=== PATIENT | male | born 1970 | race African-American/Black ===

== ENCOUNTER 2020-02-19 09:09 | Inpatient (IN) | payer MEDICAID ==
[2020-02-19] VITALS (12 sets, daily range): BP systolic 95–142; BP diastolic 31–76
[~2020-02-19] VITALS: Ht 182.9 cm; Wt 83.9 kg
[2020-02-19] MEDS ORDERED: SODIUM CHLORIDE 0.9% 1000ML BAG (SEPSIS BOLUS) IV ONE (09:45)
[2020-02-19] MEDS ORDERED: PANTOPRAZOLE SODIUM 40 MG/VIAL IV ONE (09:45)
[2020-02-19 09:55] LABS: HEMATOCRIT. 26.3 % (42.0-52.0); HEMOGLOBIN. 9.3 g/dL (14.0-18.0); MEAN CORPUSCULAR HEMOGLOBIN 29.4 pg (28.0-32.0); MEAN CORPUSCULAR VOLUME 83.2 fL (80.0-94.0); MEAN PLATELET VOLUME 10.2 fl (7.4-10.4); PLATELET 170 x1000/uL (130-400); RED BLOOD CELL COUNT 3.16 mill/uL (4.7-6.1); RED CELL DISTRIBUTION WIDTH 14.7 % (11.6-14.6)
[2020-02-19 09:58] LABS: CLARITY URINE TURBID (CLEAR); COLOR URINE YELLOW (YELLOW); KETONES URINE NEGATIVE (NEGATIVE); LEUKOCYTE ESTERASE URINE 3+ (NEGATIVE); NITRITE URINE NEGATIVE (NEGATIVE); OCCULT BLOOD URINE 3+ (NEGATIVE); PH URINE 8.5 (4.5-8.0); PROTEIN URINE 3+ (NEGATIVE); SPECIFIC GRAVITY URINE 1.012 (1.005-1.030)
[2020-02-19 10:00] LABS: INR 1.2; PROTHROMBIN TIME 12.2 sec (9.6-11.0)
[2020-02-19 10:04] LABS: CHLORIDE 96 mEq/L (98-107)
[2020-02-19] MEDS ORDERED: PIPERACILLIN/TAZ 3.375G PREMIX 50 ML IV ONE (10:15)
[2020-02-19 10:54] LABS: PLATELET ESTIMATE NORMAL
[2020-02-19] MEDS ORDERED: NOREPINEPHRINE 4MG/250ML PMX 250 ML IV ONE ×3 (11:00→18:00)
[2020-02-19] MEDS ORDERED: NOREPINEPHRINE 4 MG in DEXT 5% WATER 246 ML IV ONE (11:00)
[2020-02-19] MEDS ORDERED: ONDANSETRON HCL 4MG/2ML INJ IV PRN (13:00)
[2020-02-19] MEDS ORDERED: PIPERACILLIN/TAZOBACTAM 3.375 G in DEXT 5% WATER 100 ML IV SCH (13:00)
[2020-02-19] MEDS ORDERED: ACETAMINOPHEN 325MG TABLET PO PRN (13:00)
[2020-02-19] MEDS: SODIUM CHLORIDE 0.9% 1,000 ML IV SCH (13:16)
[2020-02-19] MEDS ORDERED: MIDODRINE HCL 5MG TABLET PO SCH (13:45)
[2020-02-19 15:34] LABS: SODIUM URINE RANDOM 65 mEq/L
[2020-02-19 15:42] LABS: CREATININE URINE RANDOM < 3.0 mg/dL
[2020-02-19] MEDS ORDERED: PIPERACILLIN/TAZOBACTAM 2.25 G in DEXTROSE 5% WATER 50 ML IV SCH (16:00)
[2020-02-19] MEDS: NOREPINEPHRINE 4 MG in DEXTROSE 5% WATER 250 ML IV PRN (18:12)
[2020-02-19] MEDS: PIPERACILLIN/TAZOBACTAM 2.25 G in DEXTROSE 5% WATER 50 ML IV SCH (21:48)
[2020-02-20] VITALS (98 sets, daily range): BP systolic 81–161; BP diastolic 41–119
[2020-02-20] MEDS: SODIUM CHLORIDE 0.9% 1,000 ML IV SCH ×2 (00:48→13:21)
[2020-02-20] MEDS: NOREPINEPHRINE 4 MG in DEXTROSE 5% WATER 250 ML IV PRN ×2 (02:09→12:32)
[2020-02-20] MEDS: PIPERACILLIN/TAZOBACTAM 2.25 G in DEXTROSE 5% WATER 50 ML IV SCH ×3 (04:00→16:47)
[2020-02-20 05:43] LABS: HEMATOCRIT. 26.8 % (42.0-52.0); HEMOGLOBIN. 9.1 g/dL (14.0-18.0); MEAN CORPUSCULAR HEMOGLOBIN 28.6 pg (28.0-32.0); MEAN CORPUSCULAR VOLUME 84.2 fL (80.0-94.0); PLATELET 213 x1000/uL (130-400); RED BLOOD CELL COUNT 3.18 mill/uL (4.7-6.1); RED CELL DISTRIBUTION WIDTH 14.9 % (11.6-14.6)
[2020-02-20 05:52] LABS: CHLORIDE 103 mEq/L (98-107)
[2020-02-20 06:07] LABS: PHOSPHORUS 2.6 mg/dL (2.5-4.9)
[2020-02-20] MEDS: TAMSULOSIN HCL 0.4MG SR CAPSULE PO SCH (09:43)
[2020-02-20] MEDS: MIDODRINE HCL 5MG TABLET PO SCH ×3 (09:44→16:47)
[2020-02-20 13:44] LABS: PLATELET ESTIMATE NORMAL
[2020-02-20] MEDS ORDERED: POTASSIUM CHLORIDE 20MEQ TABLET SR PO NR (16:15)
[2020-02-20] MEDS: MEROPENEM 1,000 MG in SODIUM CHLORIDE 0.9% 100 ML IV SCH (20:01)
[2020-02-21] VITALS (91 sets, daily range): BP systolic 43–135; BP diastolic 15–80
[2020-02-21 05:09] LABS: HEMOGLOBIN. 7.8 g/dL (14.0-18.0); MEAN CORPUSCULAR HEMOGLOBIN 28.4 pg (28.0-32.0); MEAN CORPUSCULAR VOLUME 83.9 fL (80.0-94.0); MEAN PLATELET VOLUME 8.9 fl (7.4-10.4); PLATELET 202 x1000/uL (130-400); RED BLOOD CELL COUNT 2.73 mill/uL (4.7-6.1); RED CELL DISTRIBUTION WIDTH 14.8 % (11.6-14.6)
[2020-02-21] MEDS: SODIUM CHLORIDE 0.9% 1,000 ML IV SCH ×4 (05:25→21:16)
[2020-02-21 05:43] LABS: PHOSPHORUS 2.9 mg/dL (2.5-4.9)
[2020-02-21] MEDS: MEROPENEM 1,000 MG in SODIUM CHLORIDE 0.9% 100 ML IV SCH ×2 (07:14→19:46)
[2020-02-21] MEDS: MIDODRINE HCL 5MG TABLET PO SCH ×3 (09:17→16:49)
[2020-02-21] MEDS: TAMSULOSIN HCL 0.4MG SR CAPSULE PO SCH (09:18)
[2020-02-21] MEDS: NOREPINEPHRINE 4 MG in DEXTROSE 5% WATER 250 ML IV PRN (09:19)
[2020-02-21] MEDS: DOCUSATE SODIUM 250MG CAPSULE PO SCH (12:37)
[2020-02-21 14:14] LABS: PLATELET ESTIMATE NORMAL
[2020-02-22] VITALS (76 sets, daily range): BP systolic 71–131; BP diastolic 23–78
[2020-02-22 06:35] LABS: HEMATOCRIT. 22.6 % (42.0-52.0); HEMOGLOBIN. 7.8 g/dL (14.0-18.0); MEAN CORPUSCULAR HEMOGLOBIN 29.4 pg (28.0-32.0); MEAN CORPUSCULAR VOLUME 85.1 fL (80.0-94.0); PLATELET 241 x1000/uL (130-400); RED BLOOD CELL COUNT 2.66 mill/uL (4.7-6.1); RED CELL DISTRIBUTION WIDTH 14.9 % (11.6-14.6)
[2020-02-22 07:59] LABS: PHOSPHORUS 2.7 mg/dL (2.5-4.9)
[2020-02-22] MEDS: MEROPENEM 1,000 MG in SODIUM CHLORIDE 0.9% 100 ML IV SCH (09:06)
[2020-02-22] MEDS: DOCUSATE SODIUM 250MG CAPSULE PO SCH (09:07)
[2020-02-22] MEDS: TAMSULOSIN HCL 0.4MG SR CAPSULE PO SCH (09:07)
[2020-02-22] MEDS: MIDODRINE HCL 5MG TABLET PO SCH ×3 (09:08→17:21)
[2020-02-22] MEDS: SODIUM CHLORIDE 0.9% 1,000 ML IV SCH (11:03)
[2020-02-22 15:06] LABS: PLATELET ESTIMATE NORMAL
[2020-02-22] MEDS ORDERED: MAGNESIUM 2 G PREMIX 50 ML IV NR (15:30)
[2020-02-22] MEDS: FLUDROCORTISONE ACETATE 0.1MG TABLET PO SCH (17:21)
[2020-02-22] MEDS: NOREPINEPHRINE 4 MG in DEXTROSE 5% WATER 250 ML IV PRN (18:43)
[2020-02-22] MEDS ORDERED: CEFTRIAXONE 2 G PREMIX 50 ML IV SCH (19:45)
[2020-02-22] MEDS: CEFTRIAXONE 2 G in DEXTROSE 5% WATER 50 ML IV SCH (20:51)
[2020-02-22] MEDS ORDERED: IPRATROPIUM/ALBUTEROL 0.5-3(2.5)MG/3ML NEB HHN PRN (22:30)
[2020-02-22 22:53] LABS: BG BASE EXCESS -6.6 mmol/L (-2.0-2.0); BG CARBOXYHEMOGLOBIN 1.7 % (0.5-1.5); BG DEOXYHEMOGLOBIN 2.7 % (0.0-5.0); BG FRACTION INSPIRED OXYGEN 21; BG HCO3 ACT 18.4 mmol/L (22.0-26.0); BG METHEMOGLOBIN 0.3 % (0.0-1.5); BG OXYGEN SATURATION 97.2 % (92.0-98.5); BG OXYHEMOGLOBIN 95.3 % (94.0-97.0); BG PCO2 34.3 mmHg (35.0-45.0); BG PH 7.347 (7.350-7.450); BG PO2 94.9 mmHg (75.0-100.0); BG SAMPLE SITE RIGHT RADIAL; BG TOTAL HEMOGLOBIN 8.1 g/dL (12.0-18.0); BG VENT MODE ROOM AIR
[2020-02-23] VITALS (57 sets, daily range): BP systolic 83–152; BP diastolic 47–102
[2020-02-23] MEDS: SODIUM CHLORIDE 0.9% 1,000 ML IV SCH ×2 (02:08→23:35)
[2020-02-23 06:42] LABS: CHLORIDE 113 mEq/L (98-107)
[2020-02-23 06:47] LABS: HEMATOCRIT. 22.9 % (42.0-52.0); HEMOGLOBIN. 7.7 g/dL (14.0-18.0); MEAN CORPUSCULAR HEMOGLOBIN 28.4 pg (28.0-32.0); MEAN CORPUSCULAR VOLUME 84.2 fL (80.0-94.0); MEAN PLATELET VOLUME 8.7 fl (7.4-10.4); PLATELET 320 x1000/uL (130-400); RED BLOOD CELL COUNT 2.71 mill/uL (4.7-6.1); RED CELL DISTRIBUTION WIDTH 14.4 % (11.6-14.6)
[2020-02-23] MEDS: MIDODRINE HCL 5MG TABLET PO SCH ×3 (09:39→17:00)
[2020-02-23] MEDS: ZINC SULFATE 220 MG ( 50 ) CAPSULE PO SCH (09:39)
[2020-02-23] MEDS: ASCORBIC ACID 500 MG TABLET PO SCH (09:40)
[2020-02-23] MEDS: TAMSULOSIN HCL 0.4MG SR CAPSULE PO SCH (09:41)
[2020-02-23] MEDS: FLUDROCORTISONE ACETATE 0.1MG TABLET PO SCH (09:41)
[2020-02-23] MEDS: MAGNESIUM HYDROXIDE 400MG/5ML 30ML UDC PO SCH (09:42)
[2020-02-23] MEDS: DOCUSATE SODIUM 250MG CAPSULE PO SCH (09:42)
[2020-02-23] MEDS ORDERED: SODIUM CHLORIDE 0.45% 500 ML IV ONE (12:00)
[2020-02-23] MEDS ORDERED: POTASSIUM PHOS,M-BASIC-D-BASIC 20 MMOL in DEXT 5% WATER 243.3333 ML IV NR (14:30)
[2020-02-23] MEDS: CEFTRIAXONE 2 G in DEXTROSE 5% WATER 50 ML IV SCH (21:01)
[2020-02-23] MEDS ORDERED: BACL20TA PO (21:49)
[2020-02-23] MEDS ORDERED: GABA-533 PO (21:49)
[2020-02-23 22:24] LABS: PLATELET ESTIMATE NORMAL
[2020-02-24] VITALS (64 sets, daily range): BP systolic 78–159; BP diastolic 35–123
[2020-02-24] MEDS: NOREPINEPHRINE 4 MG in DEXTROSE 5% WATER 250 ML IV PRN (03:18)
[2020-02-24 06:13] LABS: HEMATOCRIT. 21.4 % (42.0-52.0); HEMOGLOBIN. 7.2 g/dL (14.0-18.0); MEAN CORPUSCULAR HEMOGLOBIN 28.4 pg (28.0-32.0); MEAN CORPUSCULAR VOLUME 83.9 fL (80.0-94.0); MEAN PLATELET VOLUME 8.3 fl (7.4-10.4); PLATELET 337 x1000/uL (130-400); RED BLOOD CELL COUNT 2.55 mill/uL (4.7-6.1); RED CELL DISTRIBUTION WIDTH 14.9 % (11.6-14.6)
[2020-02-24 06:23] LABS: CHLORIDE 116 mEq/L (98-107)
[2020-02-24 06:31] LABS: PHOSPHORUS 2.8 mg/dL (2.5-4.9)
[2020-02-24] MEDS: MAGNESIUM HYDROXIDE 400MG/5ML 30ML UDC PO SCH (08:56)
[2020-02-24] MEDS: TAMSULOSIN HCL 0.4MG SR CAPSULE PO SCH (08:56)
[2020-02-24] MEDS: DOCUSATE SODIUM 250MG CAPSULE PO SCH (08:56)
[2020-02-24] MEDS: FLUDROCORTISONE ACETATE 0.1MG TABLET PO SCH (08:56)
[2020-02-24] MEDS: ZINC SULFATE 220 MG ( 50 ) CAPSULE PO SCH (08:56)
[2020-02-24] MEDS: ASCORBIC ACID 500 MG TABLET PO SCH (08:56)
[2020-02-24] MEDS: MIDODRINE HCL 5MG TABLET PO SCH ×3 (08:57→18:07)
[2020-02-24] MEDS: SODIUM CHLORIDE 0.9% 1,000 ML IV SCH ×2 (09:39→23:45)
[2020-02-24 10:52] LABS: NUCLEATED RED BLOOD CELLS 2 /100 WBC; PLATELET ESTIMATE NORMAL
[2020-02-24 18:19] LABS: T4 FREE 1.19 ng/dL (0.76-1.46)
[2020-02-24 18:34] LABS: FOLIC ACID (FOLATE) SERUM 14.1 ng/mL (>5.38)
[2020-02-24] MEDS: CEFTRIAXONE 2 G in DEXTROSE 5% WATER 50 ML IV SCH (21:28)
[2020-02-25] VITALS (10 sets, daily range): BP systolic 103–158; BP diastolic 19–98
[2020-02-25 01:56] LABS: *AMPHETAMINES SCREEN URINE NEGATIVE (NEGATIVE); *BARBITURATES SCREEN URINE NEGATIVE (NEGATIVE); *BENZODIAZEPINES SCREEN URINE NEGATIVE (NEGATIVE)
[2020-02-25 01:57] LABS: *COCAINE SCREEN URINE NEGATIVE (NEGATIVE); CANNABINOID URINE SCREEN NEGATIVE (NEGATIVE); METHADONE URINE SCREEN NEGATIVE (NEGATIVE); OPIATES URINE SCREEN NEGATIVE (NEGATIVE); PHENCYCLIDINE URINE SCREEN NEGATIVE (NEGATIVE)
[2020-02-25 06:31] LABS: CHLORIDE 117 mEq/L (98-107)
[2020-02-25 06:32] LABS: HEMATOCRIT. 22.3 % (42.0-52.0); HEMOGLOBIN. 7.6 g/dL (14.0-18.0); MEAN CORPUSCULAR VOLUME 85.3 fL (80.0-94.0); MEAN PLATELET VOLUME 8.5 fl (7.4-10.4); PLATELET 401 x1000/uL (130-400); RED BLOOD CELL COUNT 2.62 mill/uL (4.7-6.1)
[2020-02-25] MEDS: MAGNESIUM HYDROXIDE 400MG/5ML 30ML UDC PO SCH (09:00)
[2020-02-25] MEDS: MIDODRINE HCL 5MG TABLET PO SCH ×3 (09:45→16:33)
[2020-02-25] MEDS: DOCUSATE SODIUM 250MG CAPSULE PO SCH (09:45)
[2020-02-25] MEDS: ZINC SULFATE 220 MG ( 50 ) CAPSULE PO SCH (09:46)
[2020-02-25] MEDS: ASCORBIC ACID 500 MG TABLET PO SCH (09:46)
[2020-02-25] MEDS: TAMSULOSIN HCL 0.4MG SR CAPSULE PO SCH (09:46)
[2020-02-25] MEDS: SODIUM CHLORIDE 0.45% 1,000 ML IV SCH (13:25)
[2020-02-25 13:57] LABS: NUCLEATED RED BLOOD CELLS 1 /100 WBC; PLATELET ESTIMATE INCREASED
[2020-02-25] MEDS: CEFTRIAXONE 2 G in DEXTROSE 5% WATER 50 ML IV SCH (21:53)
[2020-02-26] VITALS (12 sets, daily range): BP systolic 95–153; BP diastolic 39–104
[2020-02-26 07:08] LABS: HEMATOCRIT. 22.6 % (42.0-52.0); HEMOGLOBIN. 7.6 g/dL (14.0-18.0); MEAN CORPUSCULAR HEMOGLOBIN 28.9 pg (28.0-32.0); MEAN CORPUSCULAR VOLUME 85.4 fL (80.0-94.0); MEAN PLATELET VOLUME 8.3 fl (7.4-10.4); PLATELET 410 x1000/uL (130-400); RED BLOOD CELL COUNT 2.65 mill/uL (4.7-6.1); RED CELL DISTRIBUTION WIDTH 15.1 % (11.6-14.6)
[2020-02-26 07:19] LABS: CHLORIDE 118 mEq/L (98-107)
[2020-02-26] MEDS: MIDODRINE HCL 5MG TABLET PO SCH ×4 (08:32→18:13)
[2020-02-26] MEDS: DOCUSATE SODIUM 250MG CAPSULE PO SCH (08:32)
[2020-02-26] MEDS: ASCORBIC ACID 500 MG TABLET PO SCH (08:32)
[2020-02-26] MEDS: ZINC SULFATE 220 MG ( 50 ) CAPSULE PO SCH (08:33)
[2020-02-26] MEDS: TAMSULOSIN HCL 0.4MG SR CAPSULE PO SCH (08:33)
[2020-02-26] MEDS: MAGNESIUM HYDROXIDE 400MG/5ML 30ML UDC PO SCH (08:33)
[2020-02-26] MEDS: SODIUM CHLORIDE 0.45% 1,000 ML IV SCH (13:52)
[2020-02-26 13:57] LABS: NUCLEATED RED BLOOD CELLS 1 /100 WBC; PLATELET ESTIMATE INCREASED
[2020-02-26] MEDS ORDERED: MAGNESIUM 2 G PREMIX 50 ML IV SCH (14:00)
[2020-02-26] MEDS: CEFTRIAXONE 2 G in DEXTROSE 5% WATER 50 ML IV SCH (21:27)
[2020-02-27] VITALS (12 sets, daily range): BP systolic 99–167; BP diastolic 41–89
[2020-02-27] MEDS: MIDODRINE HCL 5MG TABLET PO SCH ×3 (09:00→17:00)
[2020-02-27] MEDS: ZINC SULFATE 220 MG ( 50 ) CAPSULE PO SCH (09:29)
[2020-02-27] MEDS: DOCUSATE SODIUM 250MG CAPSULE PO SCH (09:29)
[2020-02-27] MEDS: ASCORBIC ACID 500 MG TABLET PO SCH (09:29)
[2020-02-27] MEDS: TAMSULOSIN HCL 0.4MG SR CAPSULE PO SCH (09:30)
[2020-02-27] MEDS: MAGNESIUM HYDROXIDE 400MG/5ML 30ML UDC PO SCH (09:30)
[2020-02-27] MEDS: DEXTROSE 5% WATER 1,000 ML IV SCH (13:08)
[2020-02-27 17:18] LABS: CLARITY URINE TURBID (CLEAR); COLOR URINE YELLOW (YELLOW); KETONES URINE 1+ (NEGATIVE); LEUKOCYTE ESTERASE URINE 3+ (NEGATIVE); NITRITE URINE NEGATIVE (NEGATIVE); OCCULT BLOOD URINE 2+ (NEGATIVE); PROTEIN URINE 2+ (NEGATIVE); SPECIFIC GRAVITY URINE 1.013 (1.005-1.030); UROBILINOGEN URINE 0.2 E.U./dL (0.2-1.0)
[2020-02-27] MEDS: CEFTRIAXONE 2 G in DEXTROSE 5% WATER 50 ML IV SCH (20:01)
[2020-02-27] MEDS: POLYETHYLENE GLYCOL 3350 (17GM) 1 DOSE PACK PO SCH (20:01)
[2020-02-28] VITALS (15 sets, daily range): BP systolic 92–124; BP diastolic 54–89
[2020-02-28 07:11] LABS: HEMATOCRIT. 21.9 % (42.0-52.0); HEMOGLOBIN. 7.4 g/dL (14.0-18.0); MEAN CORPUSCULAR HEMOGLOBIN 29.4 pg (28.0-32.0); MEAN PLATELET VOLUME 8.6 fl (7.4-10.4); PLATELET 369 x1000/uL (130-400); RED BLOOD CELL COUNT 2.51 mill/uL (4.7-6.1); RED CELL DISTRIBUTION WIDTH 15.9 % (11.6-14.6)
[2020-02-28 08:24] LABS: CHLORIDE 116 mEq/L (98-107)
[2020-02-28 08:34] LABS: PHOSPHORUS 2.9 mg/dL (2.5-4.9)
[2020-02-28] MEDS: MAGNESIUM HYDROXIDE 400MG/5ML 30ML UDC PO SCH (10:05)
[2020-02-28] MEDS: ASCORBIC ACID 500 MG TABLET PO SCH (10:05)
[2020-02-28] MEDS: MIDODRINE HCL 5MG TABLET PO SCH ×3 (10:06→20:06)
[2020-02-28] MEDS: DOCUSATE SODIUM 250MG CAPSULE PO SCH ×2 (10:06→10:07)
[2020-02-28] MEDS: ZINC SULFATE 220 MG ( 50 ) CAPSULE PO SCH (10:06)
[2020-02-28] MEDS: TAMSULOSIN HCL 0.4MG SR CAPSULE PO SCH (10:08)
[2020-02-28 13:00] LABS: PLATELET ESTIMATE NORMAL
[2020-02-28] MEDS: DEXTROSE 5% WATER 1,000 ML IV SCH (14:10)
[2020-02-28] MEDS ORDERED: POTASSIUM CHLORIDE 20MEQ/PACKET PO NR (17:45)
[2020-02-28] MEDS ORDERED: POLYETHYLENE GLYCOL 3350 (17GM) 1 DOSE PACK PO NR (17:45)
[2020-02-28] MEDS: POLYETHYLENE GLYCOL 3350 (17GM) 1 DOSE PACK PO SCH (22:13)
[2020-02-28] MEDS: CEFTRIAXONE 2 G in DEXTROSE 5% WATER 50 ML IV SCH (22:13)
[2020-02-29] VITALS: BP 127/54
[2020-02-29 04:00] VITALS: BP 110/67
[2020-02-29 06:45] LABS: HEMATOCRIT. 24.6 % (42.0-52.0); HEMOGLOBIN. 8.3 g/dL (14.0-18.0); MEAN CORPUSCULAR HEMOGLOBIN 29.3 pg (28.0-32.0); MEAN CORPUSCULAR VOLUME 87.5 fL (80.0-94.0); MEAN PLATELET VOLUME 8.6 fl (7.4-10.4); PLATELET 386 x1000/uL (130-400); RED BLOOD CELL COUNT 2.82 mill/uL (4.7-6.1); RED CELL DISTRIBUTION WIDTH 15.8 % (11.6-14.6)
[2020-02-29 07:03] LABS: CHLORIDE 118 mEq/L (98-107)
[2020-02-29 07:08] LABS: PHOSPHORUS 2.4 mg/dL (2.5-4.9)
[2020-02-29 08:00] VITALS: BP 92/53
[2020-02-29] MEDS: MAGNESIUM HYDROXIDE 400MG/5ML 30ML UDC PO SCH (09:00)
[2020-02-29] MEDS: ZINC SULFATE 220 MG ( 50 ) CAPSULE PO SCH (09:16)
[2020-02-29] MEDS: MIDODRINE HCL 5MG TABLET PO SCH ×3 (09:16→16:16)
[2020-02-29] MEDS: ASCORBIC ACID 500 MG TABLET PO SCH (09:17)
[2020-02-29] MEDS: TAMSULOSIN HCL 0.4MG SR CAPSULE PO SCH (09:17)
[2020-02-29 12:00] VITALS: BP 102/68
[2020-02-29] MEDS: DEXTROSE 5% WATER 1,000 ML IV SCH (12:25)
[2020-02-29 16:00] VITALS: BP 122/75
[2020-02-29 16:43] LABS: PLATELET ESTIMATE NORMAL
[2020-02-29 20:00] VITALS: BP 109/72
[2020-02-29] MEDS ORDERED: CEFTRIAXONE 2 G in DEXTROSE 5% WATER 50 ML IV SCH (20:00)
[2020-02-29] MEDS: POLYETHYLENE GLYCOL 3350 (17GM) 1 DOSE PACK PO SCH (20:05)
[2020-03-01] VITALS: BP 111/75
[2020-03-01 04:00] VITALS: BP 94/57
[2020-03-01 06:16] LABS: CHLORIDE 113 mEq/L (98-107)
[2020-03-01 06:23] LABS: HEMATOCRIT. 23.8 % (42.0-52.0); HEMOGLOBIN. 7.9 g/dL (14.0-18.0); MEAN CORPUSCULAR HEMOGLOBIN 29.2 pg (28.0-32.0); MEAN CORPUSCULAR VOLUME 87.4 fL (80.0-94.0); MEAN PLATELET VOLUME 8.7 fl (7.4-10.4); PLATELET 331 x1000/uL (130-400); RED BLOOD CELL COUNT 2.72 mill/uL (4.7-6.1); RED CELL DISTRIBUTION WIDTH 16.1 % (11.6-14.6)
[2020-03-01] MEDS: MAGNESIUM HYDROXIDE 400MG/5ML 30ML UDC PO SCH (08:20)
[2020-03-01] MEDS: ASCORBIC ACID 500 MG TABLET PO SCH (08:21)
[2020-03-01] MEDS: MIDODRINE HCL 5MG TABLET PO SCH ×2 (08:21→13:40)
[2020-03-01] MEDS: ZINC SULFATE 220 MG ( 50 ) CAPSULE PO SCH (08:22)
[2020-03-01] MEDS ORDERED: CIPR-263 MT (08:38)
[2020-03-01] MEDS ORDERED: SULF1TAB MT (08:38)
[2020-03-01 08:40] VITALS: BP 92/47
[2020-03-01] MEDS: DOCUSATE SODIUM 250MG CAPSULE PO SCH (09:00)
[2020-03-01] MEDS: TAMSULOSIN HCL 0.4MG SR CAPSULE PO SCH (10:25)
[2020-03-01 11:46] VITALS: BP 117/59
[2020-03-01 13:31] LABS: PLATELET ESTIMATE NORMAL
[2020-03-01] MEDS: DEXTROSE 5% WATER 1,000 ML IV SCH (13:41)
[2020-03-01 14:28] VITALS: BP 115/95
[2020-03-01 16:22] VITALS: BP 111/62
[2020-03-18] MEDS ORDERED: FLOR PO (12:09)
[2020-03-18] MEDS ORDERED: MIDO5TAB4 PO (12:09)
[2020-03-18] MEDS ORDERED: TAMS-11 PO (12:09)
== END 2020-03-01 17:05 | disposition home health service (06) | DRG 720 ==
LOC: ER 09:26 → EDBEDREQTM 10:43 → EDBEDREQ 10:43 → EDBEDREQTM 11:03 → EDBEDREQSVC 11:03 → CANRESERV 11:05 → ENRESERV 11:05 → 5EST 21:23
PROVIDERS: ADMIT Internal Medicine; ATTEND Internal Medicine
PROC: 02HV33Z Insertion of Infusion Device into Superior Vena Cava, Percutaneous Approach (ICD-10-PCS; principal; 2020-02-19)
PROC: B548ZZA Ultrasonography of Superior Vena Cava, Guidance (ICD-10-PCS; 2020-02-19)
DX: A41.51 Sepsis due to Escherichia coli [E. coli] (principal); R65.21 Severe sepsis with septic shock; E43 Unspecified severe protein-calorie malnutrition; E87.8 Other disorders of electrolyte and fluid balance, not elsewhere classified; G82.20 Paraplegia, unspecified; I31.3 Pericardial effusion (noninflammatory); D64.9 Anemia, unspecified; E87.1 Hypo-osmolality and hyponatremia; Z95.828 Presence of other vascular implants and grafts; G92 Toxic encephalopathy; I10 Essential (primary) hypertension; K59.00 Constipation, unspecified; L85.3 Xerosis cutis; B96.20 Unspecified Escherichia coli [E. coli] as the cause of diseases classified elsewhere; N40.1 Benign prostatic hyperplasia with lower urinary tract symptoms; N39.0 Urinary tract infection, site not specified; N20.0 Calculus of kidney; I73.9 Peripheral vascular disease, unspecified; R26.9 Unspecified abnormalities of gait and mobility; R74.0 Nonspecific elevation of levels of transaminase and lactic acid dehydrogenase [LDH]; E83.42 Hypomagnesemia; K63.9 Disease of intestine, unspecified; N17.0 Acute kidney failure with tubular necrosis; L89.899 Pressure ulcer of other site, unspecified stage; N13.8 Other obstructive and reflux uropathy; S81.812A Laceration without foreign body, left lower leg, initial encounter; X58.XXXA Exposure to other specified factors, initial encounter; Y93.89 Activity, other specified; Y92.89 Other specified places as the place of occurrence of the external cause; Y99.8 Other external cause status; Z03.818 Encounter for observation for suspected exposure to other biological agents ruled out; Z68.25 Body mass index [BMI] 25.0-25.9, adult
CPT/HCPCS: 36415; 36573; 36600; 70551; 71045; 74018; 74176; 76937; 80048; 80053; 80305; 80320; 81003; 82040; 82043; 82140; 82375; 82533; 82570; 82607; 82746; 82805; 82962; 83036; 83605; 83735; 83935; 84100; 84134; 84145; 84300; 84439; 84443; 84481; 84484; 85025; 86850; 86900; 87077; 87186; 93005; 93923; 93970; 96365; 99291; C1725; C9113; J0696; J2185; J2405; J2543; J3475; J3490; J7030; J7050; J7060; J7070; G0480; U0003-CS

== ENCOUNTER 2020-03-11 05:54 | Inpatient (IN) | payer MEDICAID ==
[~2020-03-11] VITALS: Ht 177.8 cm; Wt 77.1 kg
[~2020-03-11 05:54] MED LIST: BACL20TA PO; CIPR-263 MT; GABA-533 PO; SULF1TAB MT
[2020-03-11] MEDS ORDERED: PIPERACILLIN/TAZ 3.375G PREMIX 50 ML IV ONE (06:15)
[2020-03-11] MEDS ORDERED: SODIUM CHLORIDE 0.9% 1000ML BAG (SEPSIS BOLUS) IV ONE (06:15)
[2020-03-11] MEDS ORDERED: VANCOMYCIN 1 G PREMIX 200 ML IV ONE (06:15)
[2020-03-11 06:36] LABS: HEMATOCRIT. 24.8 % (42.0-52.0); HEMOGLOBIN. 8.1 g/dL (14.0-18.0); MEAN CORPUSCULAR HEMOGLOBIN 28.4 pg (28.0-32.0); MEAN CORPUSCULAR VOLUME 86.9 fL (80.0-94.0); MEAN PLATELET VOLUME 8.3 fl (7.4-10.4); PLATELET 139 x1000/uL (130-400); RED BLOOD CELL COUNT 2.86 mill/uL (4.7-6.1); RED CELL DISTRIBUTION WIDTH 15.6 % (11.6-14.6)
[2020-03-11 06:44] LABS: CHLORIDE 108 mEq/L (98-107)
[2020-03-11 06:48] LABS: INR 1.1; PROTHROMBIN TIME 11.9 sec (9.6-11.0)
[2020-03-11] MEDS ORDERED: NOREPINEPHRINE 4MG/250ML PMX 250 ML IV ONE (07:15)
[2020-03-11 07:50] LABS: CLARITY URINE TURBID (CLEAR); COLOR URINE YELLOW (YELLOW); KETONES URINE NEGATIVE (NEGATIVE); LEUKOCYTE ESTERASE URINE 3+ (NEGATIVE); NITRITE URINE POSITIVE (NEGATIVE); OCCULT BLOOD URINE 2+ (NEGATIVE); PROTEIN URINE 1+ (NEGATIVE); SPECIFIC GRAVITY URINE 1.009 (1.005-1.030)
[2020-03-11 08:01] LABS: PLATELET ESTIMATE NORMAL
[2020-03-11] MEDS ORDERED: IOHEXOL-350 100 ML BOTTLE ONE (09:37)
[2020-03-11] MEDS ORDERED: LIDOCAINE HCL 1% 20ML VIAL (Pyxis) INJ ONE (10:01)
[2020-03-11] MEDS ORDERED: ACETAMINOPHEN 325MG TABLET PO PRN (10:45)
[2020-03-11] MEDS ORDERED: ACETAMINOPHEN 650MG/20.3ML UDC GT PRN (10:45)
[2020-03-11] MEDS ORDERED: ACETAMINOPHEN 650MG SUPP PR PRN ×2 (10:45)
[2020-03-11] MEDS: VANCOMYCIN 1 G PREMIX 200 ML IV SCH ×3 (12:00→23:30)
[2020-03-11 12:53] LABS: *BENZODIAZEPINES SCREEN URINE NEGATIVE (NEGATIVE); *COCAINE SCREEN URINE NEGATIVE (NEGATIVE); METHADONE URINE SCREEN NEGATIVE (NEGATIVE); OPIATES URINE SCREEN NEGATIVE (NEGATIVE)
[2020-03-11 12:54] LABS: PHENCYCLIDINE URINE SCREEN NEGATIVE (NEGATIVE)
[2020-03-11 13:01] LABS: *BARBITURATES SCREEN URINE NEGATIVE (NEGATIVE)
[2020-03-11 13:03] LABS: *AMPHETAMINES SCREEN URINE NEGATIVE (NEGATIVE); CANNABINOID URINE SCREEN NEGATIVE (NEGATIVE)
[2020-03-11] MEDS: PIPERACILLIN/TAZ 3.375G PREMIX 50 ML IV SCH ×2 (14:05→21:24)
[2020-03-11] MEDS: SODIUM CHLORIDE 0.9% INJ 3ML FLUSH IVF SCH ×2 (14:05→21:56)
[2020-03-11] MEDS: ACETAMINOPHEN 325MG TABLET PO PRN (16:29)
[2020-03-11] MEDS ORDERED: NOREPINEPHRINE 4 MG in DEXTROSE 5% WATER 250 ML IV PRN (22:00)
[2020-03-12] MEDS ORDERED: ALBUTEROL 6.7GM HFA INHALER INH PRN (05:30)
[2020-03-12] MEDS: PIPERACILLIN/TAZ 3.375G PREMIX 50 ML IV SCH ×2 (05:46→15:00)
[2020-03-12] MEDS: SODIUM CHLORIDE 0.9% INJ 3ML FLUSH IVF SCH ×2 (05:48→15:56)
[2020-03-12] MEDS: ACETAMINOPHEN 325MG TABLET PO PRN (07:52)
[2020-03-12] MEDS ORDERED: NOREPINEPHRINE 4MG/250ML PMX 250 ML IV PRN (08:15)
[2020-03-12 08:36] LABS: HEMATOCRIT. 26.5 % (42.0-52.0); HEMOGLOBIN. 8.7 g/dL (14.0-18.0); MEAN CORPUSCULAR HEMOGLOBIN 28.4 pg (28.0-32.0); MEAN CORPUSCULAR VOLUME 86.7 fL (80.0-94.0); RED BLOOD CELL COUNT 3.05 mill/uL (4.7-6.1); RED CELL DISTRIBUTION WIDTH 15.8 % (11.6-14.6)
[2020-03-12 08:40] LABS: CHLORIDE 107 mEq/L (98-107)
[2020-03-12 08:47] LABS: LDL CHOLESTEROL 47 mg/dL (5-100)
[2020-03-12 08:48] LABS: HDL CHOLESTEROL 54 mg/dL (40-59)
[2020-03-12 09:16] LABS: MEAN PLATELET VOLUME 8.9 fl (7.4-10.4); PLATELET 144 x1000/uL (130-400); PLATELET ESTIMATE NORMAL
[2020-03-12 11:55] LABS: T4 FREE 1.45 ng/dL (0.76-1.46)
[2020-03-12] MEDS: VANCOMYCIN 1 G PREMIX 200 ML IV SCH (15:56)
[2020-03-12] MEDS: ACETAMINOPHEN 650MG/20.3ML UDC GT PRN (17:23)
[2020-03-12 18:20] LABS: CREATINE KINASE 40 IU/L (39-308)
[2020-03-12 18:21] LABS: CREATINE KINASE MB FRACTION < 1.0 ng/mL (0.5-3.6)
[2020-03-12] MEDS: ENOXAPARIN 40MG/0.4ML SYR SUBCUT SCH (20:07)
[2020-03-13 00:01] LABS: CREATINE KINASE 76 IU/L (39-308)
[2020-03-13 00:02] LABS: CREATINE KINASE MB FRACTION < 1.0 ng/mL (0.5-3.6)
[2020-03-13] MEDS: SODIUM CHLORIDE 0.9% INJ 3ML FLUSH IVF SCH ×4 (01:34→22:00)
[2020-03-13] MEDS: PIPERACILLIN/TAZ 3.375G PREMIX 50 ML IV SCH ×3 (01:37→16:41)
[2020-03-13] MEDS: VANCOMYCIN 1 G PREMIX 200 ML IV SCH ×3 (02:12→16:40)
[2020-03-13] MEDS: ACETAMINOPHEN 650MG/20.3ML UDC GT PRN (04:39)
[2020-03-13 05:06] LABS: CREATINE KINASE 89 IU/L (39-308)
[2020-03-13 05:07] LABS: CREATINE KINASE MB FRACTION < 1.0 ng/mL (0.5-3.6)
[2020-03-13 08:04] LABS: BG BASE EXCESS 0.4 mmol/L (-2.0-2.0); BG CARBOXYHEMOGLOBIN 0.5 % (0.5-1.5); BG DEOXYHEMOGLOBIN 0.3 % (0.0-5.0); BG FRACTION INSPIRED OXYGEN 44; BG HCO3 ACT 24.6 mmol/L (22.0-26.0); BG METHEMOGLOBIN 0.2 % (0.0-1.5); BG OXYGEN SATURATION 99.7 % (92.0-98.5); BG PH 7.429 (7.350-7.450); BG PO2 261.8 mmHg (75.0-100.0); BG SAMPLE SITE RIGHT RADIAL; BG TOTAL HEMOGLOBIN 9.6 g/dL (12.0-18.0); BG VENT MODE NASAL CANNULA
[2020-03-13 15:28] LABS: HEMATOCRIT. 26.7 % (42.0-52.0); HEMOGLOBIN. 8.8 g/dL (14.0-18.0); MEAN CORPUSCULAR HEMOGLOBIN 28.6 pg (28.0-32.0); MEAN CORPUSCULAR VOLUME 86.1 fL (80.0-94.0); MEAN PLATELET VOLUME 9.2 fl (7.4-10.4); PLATELET 166 x1000/uL (130-400); RED CELL DISTRIBUTION WIDTH 15.9 % (11.6-14.6)
[2020-03-13 15:33] LABS: CHLORIDE 108 mEq/L (98-107)
[2020-03-13 16:29] LABS: PLATELET ESTIMATE NORMAL
[2020-03-13] MEDS ORDERED: IPRATROPIUM/ALBUTEROL 0.5-3(2.5)MG/3ML NEB HHN PRN (16:45)
[2020-03-13] MEDS: ENOXAPARIN 40MG/0.4ML SYR SUBCUT SCH (18:00)
[2020-03-13] MEDS: NOREPINEPHRINE 4 MG in DEXTROSE 5% WATER 250 ML IV PRN (23:22)
[2020-03-13] MEDS: GUAIFENESIN 600MG ER TABLET PO SCH (23:36)
[2020-03-14] MEDS: PIPERACILLIN/TAZ 3.375G PREMIX 50 ML IV SCH ×3 (01:18→22:13)
[2020-03-14] MEDS: VANCOMYCIN 1 G PREMIX 200 ML IV SCH (03:10)
[2020-03-14] MEDS: SODIUM CHLORIDE 0.9% INJ 3ML FLUSH IVF SCH ×2 (06:24→14:02)
[2020-03-14] MEDS: NOREPINEPHRINE 4 MG in DEXTROSE 5% WATER 250 ML IV PRN (06:24)
[2020-03-14 06:26] LABS: CHLORIDE 105 mEq/L (98-107)
[2020-03-14] MEDS ORDERED: SODIUM BICARBONATE 4% (2.4MEQ) 5ML VIAL IV ONE (08:21)
[2020-03-14] MEDS ORDERED: LIDOCAINE HCL 1% 20ML VIAL (Pyxis) INJ ONE (08:21)
[2020-03-14 12:23] LABS: HEMATOCRIT. 29.8 % (42.0-52.0); HEMOGLOBIN. 9.7 g/dL (14.0-18.0); MEAN CORPUSCULAR HEMOGLOBIN 28.2 pg (28.0-32.0); MEAN PLATELET VOLUME 8.5 fl (7.4-10.4); PLATELET 187 x1000/uL (130-400); RED BLOOD CELL COUNT 3.46 mill/uL (4.7-6.1); RED CELL DISTRIBUTION WIDTH 15.4 % (11.6-14.6)
[2020-03-14 12:25] LABS: CHLORIDE 107 mEq/L (98-107)
[2020-03-14 13:15] LABS: PLATELET ESTIMATE NORMAL
[2020-03-14] MEDS: GUAIFENESIN 600MG ER TABLET PO SCH (13:38)
[2020-03-14] MEDS: MIDODRINE HCL 5MG TABLET PO SCH (14:48)
[2020-03-14] MEDS: ENOXAPARIN 40MG/0.4ML SYR SUBCUT SCH ×2 (18:00→22:13)
[2020-03-15] VITALS (17 sets, daily range): BP systolic 56–158; BP diastolic 30–102
[2020-03-15] MEDS ORDERED: NOREPINEPHRINE 4MG/250ML PMX 250 ML IV PRN (02:45)
[2020-03-15 04:49] LABS: HEMATOCRIT. 28.8 % (42.0-52.0); HEMOGLOBIN. 9.4 g/dL (14.0-18.0); MEAN CORPUSCULAR HEMOGLOBIN 28.1 pg (28.0-32.0); MEAN CORPUSCULAR VOLUME 86.4 fL (80.0-94.0); MEAN PLATELET VOLUME 8.8 fl (7.4-10.4); PLATELET 196 x1000/uL (130-400); RED BLOOD CELL COUNT 3.33 mill/uL (4.7-6.1); RED CELL DISTRIBUTION WIDTH 15.3 % (11.6-14.6)
[2020-03-15 04:50] LABS: CHLORIDE 106 mEq/L (98-107)
[2020-03-15] MEDS ORDERED: PIPERACILLIN/TAZOBACTAM 3.375 G in DEXT 5% WATER 100 ML IV SCH (09:00)
[2020-03-15 09:04] LABS: PLATELET ESTIMATE NORMAL
[2020-03-15] MEDS: MIDODRINE HCL 5MG TABLET PO SCH ×4 (09:11→19:08)
[2020-03-15] MEDS: SODIUM CHLORIDE 0.9% INJ 3ML FLUSH IVF SCH ×4 (09:12→22:34)
[2020-03-15] MEDS: IPRATROPIUM/ALBUTEROL 0.5-3(2.5)MG/3ML NEB HHN SCH ×2 (09:12→09:13)
[2020-03-15] MEDS: GUAIFENESIN 600MG ER TABLET PO SCH ×3 (09:12→22:38)
[2020-03-15] MEDS ORDERED: NOREPINEPHRINE 4MG/250ML PMX 250 ML IV ONE (11:42)
[2020-03-15] MEDS ORDERED: LIDOCAINE HCL 1% 20ML VIAL (Pyxis) INJ ONE (12:50)
[2020-03-15 13:07] LABS: ANGIOTENSION CONVERTING ENZYME 24 U/L (14-82)
[2020-03-15 13:07] LABS: QFT MITOGEN VALUE 0.02 IU/mL (.); QFT TB GOLD PLUS Indeterminate (Negative); QFT TB1 AG VALUE 0.01 IU/mL (.)
[2020-03-15] MEDS ORDERED: ALBUMIN HUMAN 25GM/500ML (5%) IV NR (17:00)
[2020-03-15] MEDS ORDERED: SODIUM CHLORIDE 0.9% 500 ML IV NR (17:00)
[2020-03-15] MEDS: NOREPINEPHRINE 4 MG in DEXTROSE 5% WATER 250 ML IV PRN (21:33)
[2020-03-16] VITALS (106 sets, daily range): BP systolic 61–185; BP diastolic 32–109
[2020-03-16] MEDS: PIPERACILLIN/TAZOBACTAM 3.375 G in DEXT 5% WATER 100 ML IV SCH ×3 (03:35→17:49)
[2020-03-16 05:51] LABS: HEMATOCRIT. 23.5 % (42.0-52.0); HEMOGLOBIN. 7.7 g/dL (14.0-18.0); MEAN CORPUSCULAR HEMOGLOBIN 28.2 pg (28.0-32.0); MEAN CORPUSCULAR VOLUME 86.5 fL (80.0-94.0); MEAN PLATELET VOLUME 7.9 fl (7.4-10.4); PLATELET 163 x1000/uL (130-400); RED BLOOD CELL COUNT 2.72 mill/uL (4.7-6.1); RED CELL DISTRIBUTION WIDTH 15.4 % (11.6-14.6)
[2020-03-16 05:57] LABS: CHLORIDE 111 mEq/L (98-107)
[2020-03-16] MEDS: GUAIFENESIN 600MG ER TABLET PO SCH ×2 (09:41→21:21)
[2020-03-16] MEDS: SODIUM CHLORIDE 0.9% INJ 3ML FLUSH IVF SCH ×3 (09:41→21:19)
[2020-03-16] MEDS: MIDODRINE HCL 5MG TABLET PO SCH ×3 (09:43→17:49)
[2020-03-16] MEDS ORDERED: POTASSIUM CHLORIDE 20MEQ TABLET SR PO SCH (10:45)
[2020-03-16 14:00] LABS: PLATELET ESTIMATE NORMAL
[2020-03-16] MEDS: ENOXAPARIN 40MG/0.4ML SYR SUBCUT SCH (17:52)
[2020-03-16] MEDS: TAMSULOSIN HCL 0.4MG SR CAPSULE PO SCH (21:21)
[2020-03-17] VITALS (91 sets, daily range): BP systolic 61–144; BP diastolic 31–127
[2020-03-17 05:03] LABS: EOSINOPHILS % 5.6 % (0.0-5.0); HEMATOCRIT. 24.7 % (42.0-52.0); HEMOGLOBIN. 8.1 g/dL (14.0-18.0); LYMPHOCYTES % 8.9 % (20.0-50.0); MEAN CORPUSCULAR HEMOGLOBIN 28.2 pg (28.0-32.0); MEAN CORPUSCULAR VOLUME 86.3 fL (80.0-94.0); MEAN PLATELET VOLUME 8.5 fl (7.4-10.4); MONOCYTES % 10.5 % (2.0-8.0); PLATELET 178 x1000/uL (130-400); RED BLOOD CELL COUNT 2.86 mill/uL (4.7-6.1); RED CELL DISTRIBUTION WIDTH 15.6 % (11.6-14.6)
[2020-03-17] MEDS: SODIUM CHLORIDE 0.9% INJ 3ML FLUSH IVF SCH ×3 (05:58→21:23)
[2020-03-17] MEDS: MIDODRINE HCL 5MG TABLET PO SCH ×3 (09:00→17:00)
[2020-03-17] MEDS: GUAIFENESIN 600MG ER TABLET PO SCH ×2 (09:00→21:23)
[2020-03-17] MEDS: TAMSULOSIN HCL 0.4MG SR CAPSULE PO SCH (09:01)
[2020-03-17 09:06] LABS: HISTOPLASMA ABS QT DID Negative (Neg:<1:1)
[2020-03-17] MEDS: ENOXAPARIN 40MG/0.4ML SYR SUBCUT SCH (18:00)
[2020-03-17] MEDS: FLUDROCORTISONE ACETATE 0.1MG TABLET PO SCH (23:14)
[2020-03-18] VITALS (67 sets, daily range): BP systolic 60–162; BP diastolic 31–121
[2020-03-18] MEDS: SODIUM CHLORIDE 0.9% INJ 3ML FLUSH IVF SCH ×3 (05:38→21:28)
[2020-03-18] MEDS: TAMSULOSIN HCL 0.4MG SR CAPSULE PO SCH (08:24)
[2020-03-18] MEDS: GUAIFENESIN 600MG ER TABLET PO SCH ×2 (08:24→21:28)
[2020-03-18] MEDS: MIDODRINE HCL 5MG TABLET PO SCH ×3 (08:24→16:57)
[2020-03-18] MEDS: FLUDROCORTISONE ACETATE 0.1MG TABLET PO SCH (08:24)
[2020-03-18 09:59] LABS: BASOPHILS % 3.8 % (0.0-2.0); EOSINOPHILS % 5.3 % (0.0-5.0); HEMATOCRIT. 23.5 % (42.0-52.0); HEMOGLOBIN. 7.6 g/dL (14.0-18.0); MEAN CORPUSCULAR HEMOGLOBIN 27.9 pg (28.0-32.0); MEAN CORPUSCULAR VOLUME 85.8 fL (80.0-94.0); MEAN PLATELET VOLUME 8.5 fl (7.4-10.4); MONOCYTES % 8.7 % (2.0-8.0); NEUTROPHILS % 73.2 % (40.0-76.0); PLATELET 204 x1000/uL (130-400); RED BLOOD CELL COUNT 2.74 mill/uL (4.7-6.1); RED CELL DISTRIBUTION WIDTH 15.7 % (11.6-14.6)
[2020-03-18] MEDS ORDERED: MIDO5TAB4 PO (12:09)
[2020-03-18] MEDS ORDERED: TAMS-11 PO (12:09)
[2020-03-18] MEDS ORDERED: FLOR PO (12:09)
[2020-03-18] MEDS: POTASSIUM CHLORIDE 20MEQ TABLET SR PO NR ×2 (12:12→12:33)
[2020-03-18] MEDS: ENOXAPARIN 40MG/0.4ML SYR SUBCUT SCH (17:52)
[2020-03-19] VITALS (21 sets, daily range): BP systolic 85–146; BP diastolic 46–111
[2020-03-19 05:10] LABS: BASOPHILS % 1.7 % (0.0-2.0); EOSINOPHILS % 4.9 % (0.0-5.0); HEMATOCRIT. 21.9 % (42.0-52.0); HEMOGLOBIN. 7.1 g/dL (14.0-18.0); LYMPHOCYTES % 8.1 % (20.0-50.0); MEAN CORPUSCULAR HEMOGLOBIN 28.1 pg (28.0-32.0); MEAN CORPUSCULAR VOLUME 86.5 fL (80.0-94.0); MEAN PLATELET VOLUME 8.7 fl (7.4-10.4); MONOCYTES % 8.7 % (2.0-8.0); NEUTROPHILS % 76.6 % (40.0-76.0); PLATELET 207 x1000/uL (130-400); RED BLOOD CELL COUNT 2.53 mill/uL (4.7-6.1); RED CELL DISTRIBUTION WIDTH 15.8 % (11.6-14.6)
[2020-03-19] MEDS: SODIUM CHLORIDE 0.9% INJ 3ML FLUSH IVF SCH ×2 (06:33→16:50)
[2020-03-19] MEDS: FLUDROCORTISONE ACETATE 0.1MG TABLET PO SCH (09:00)
[2020-03-19] MEDS: GUAIFENESIN 600MG ER TABLET PO SCH (11:49)
[2020-03-19] MEDS: TAMSULOSIN HCL 0.4MG SR CAPSULE PO SCH (11:49)
[2020-03-19] MEDS: MIDODRINE HCL 5MG TABLET PO SCH ×2 (11:50→13:00)
== END 2020-03-19 16:30 | disposition home health service (06) | DRG 720 ==
LOC: ER 05:54 → MICUSO 10:09 → EDBEDREQTM 10:24 → EDBEDREQ 10:24 → EDBEDREQSVC 10:24 → EDBEDREQ 19:41 → CVICU 03-15 07:29 → MICUSO 03-15 07:36 → CVICU 03-15 16:06 → 8WST 03-19 07:55
PROVIDERS: ADMIT Family Medicine; ATTEND Family Medicine
PROC: 05H533Z Insertion of Infusion Device into Right Subclavian Vein, Percutaneous Approach (ICD-10-PCS; principal; 2020-03-11)
PROC: B546ZZA Ultrasonography of Right Subclavian Vein, Guidance (ICD-10-PCS; 2020-03-11)
PROC: 07JNXZZ Inspection of Lymphatic, External Approach (ICD-10-PCS; 2020-03-14)
PROC: 05HY33Z Insertion of Infusion Device into Upper Vein, Percutaneous Approach (ICD-10-PCS; 2020-03-15)
PROC: B54MZZA Ultrasonography of Right Upper Extremity Veins, Guidance (ICD-10-PCS; 2020-03-15)
DX: A41.9 Sepsis, unspecified organism (principal); R65.21 Severe sepsis with septic shock; E44.1 Mild protein-calorie malnutrition; G82.20 Paraplegia, unspecified; N39.0 Urinary tract infection, site not specified; J18.9 Pneumonia, unspecified organism; I11.9 Hypertensive heart disease without heart failure; I25.10 Atherosclerotic heart disease of native coronary artery without angina pectoris; K80.20 Calculus of gallbladder without cholecystitis without obstruction; R59.9 Enlarged lymph nodes, unspecified; J96.01 Acute respiratory failure with hypoxia; D64.9 Anemia, unspecified; N40.0 Benign prostatic hyperplasia without lower urinary tract symptoms; N17.9 Acute kidney failure, unspecified; L85.3 Xerosis cutis; I77.1 Stricture of artery; N32.0 Bladder-neck obstruction; R59.0 Localized enlarged lymph nodes; Z79.2 Long term (current) use of antibiotics; Z79.899 Other long term (current) drug therapy; W34.00XA Accidental discharge from unspecified firearms or gun, initial encounter; Y93.89 Activity, other specified; Y92.89 Other specified places as the place of occurrence of the external cause; Y99.8 Other external cause status; Z74.01 Bed confinement status; Z87.442 Personal history of urinary calculi; Z95.828 Presence of other vascular implants and grafts; Z03.818 Encounter for observation for suspected exposure to other biological agents ruled out; Z68.24 Body mass index [BMI] 24.0-24.9, adult
CPT/HCPCS: 36415; 36600; 71045; 71275; 76881; 76937; 80048; 80053; 80061; 80202; 80305; 81003; 82164; 82375; 82378; 82550; 82553; 82805; 82962; 83036; 83605; 83880; 84145; 84439; 84443; 84484; 85025; 85379; 86301; 86480; 86698; 87635; 93005; 93306; 93970; 94640; 99291; C1725; J1650; J2543; J3370; J3490; J7030; J7060; P9041; Q9967